=== PATIENT | male | born 2005 | race Caucasian/White ===

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

== ENCOUNTER 2024-03-19 17:45 | Emergency (ER) | payer BC, SELFPAY ==
[2024-03-19 18:24] VITALS: BP 107/62; PULSE 66; RESP 18; TEMP 37.4; O2SAT 99; BMI 20.5
[2024-03-19 18:28] LABS: UTC Strep Screen (Rapid) Positive (Negative)
--- NOTE | 2024-03-19 18:35 | ED_ITS ---
Discharge Plan Disposition Patient Disposition: Home, Self-Care Condition: Good Prescriptions Prescriptions: New azithromycin 250 mg tablet 250 mg PO DIRECTED Qty: 6 0RF Rx Instructions: Take two (2) tablets on day #1, then one (1) tablet day #2 thru #5 Referrals Follow up/Referrals: Provider,Referral, MD [Primary Care Provider] - See instructions Activity Restrictions/Add. Instructions Additional Instructions/Restrictions: Start antibiotics today be sure to take it as ordered with the full length of time although you should start feeling better in 24-48 hours. Change toothbrush and toothpaste 24-48 hours after starting antibiotics Tylenol or Motrin as needed for fever or pain Encourage fluids, water, Gatorade, Powerade, try cold fluids, popsicles, ice cream will make it feel better You are contagious for 24 hours. Avoid kissing anyone, no eating or drinking after anyone. You are contagious. Follow-up the ER for new or worsening symptoms or no noticeable improvement over the next 24-48 hours. Follow-up with PCP this week. Clinical Impressions Clinical Impression: Strep throat Instructions Patient Instructions: DI for Strep Throat Print Language Print Language: Chinese Discharge ED Provider: Michelle ([facility] [place])Carmina [facility] [place] H[place] General Stated complaint: sore throat white spots Mode of Arrival: Ambulatory Source of Information: Patient Time Seen by Provider: 03/19/24 18:22 Description of Symptoms (Recalled from Triage Doc. by RN): SORE THROAT HEENT Symptoms (Recalled from RN notes): Yes Resp Symptoms (Recalled from RN notes): No Skin Symptoms (Recalled from RN notes): No MS Symptoms (Recalled from RN notes): No Functional Status (Recalled from RN notes): WNL History of Present Illness Provider Complaint: 18-year-old male presents for sore throat with white patches Related Data Previous Rx's ?Medication ?Instructions ?Recorded azithromycin 250 mg tablet 250 mg PO DIRECTED #6 tabs 03/19/24 Allergies Allergy/AdvReac Type Severity Reaction Status Date / Time No Known Allergies Allergy Verified 07/19/23 19:32 Worker's Comp Is this a Worker's Comp case?: No [facility] Disclaimer: The information contained in this section may have been updated after the patient was seen, as this information can be updated by other users. 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 alcohol intake: never current occupational status: employed Travel in the last 8 weeks: None Have you lived/traveled outside [place] in past 30 days?: No Contact w/someone who lives/traveled outside US past 30 days?: No Exposure to someone with infectious disease in past 14 days?: No Do you have a fever (greater than 100.4 F or 38 C)?: No Have you tested positive for COVID-19: No Exposed to someone with COVID-19 in past 14 days?: No Do you have a sore throat?: Yes Do you have a cough?: No Do you have any weakness?: No Do you have any diarrhea?: No Are you experiencing any unusual bleeding?: No Do you have any muscle aches/pain?: No Do you have any abdominal pain?: No Are you experiencing loss of taste or smell?: No ROS Obtained: Yes Systems reviewed as appropriate & no additional complaints except as documented ENT Ears, Nose, Mouth, and Throat: Reports system reviewed and no additional complaints, except as documented, Reports as per HPI and Reports sore throat Physical Exam General General appearance: alert and in no apparent distress ENT ENT exam: Present mucous membranes moist and TM's normal bilaterally Expanded ENT Exam Throat exam: Present tonsillar erythema, tonsillomegaly and tonsillar exudate Respiratory Respiratory exam: Present normal lung sounds bilaterally Cardiovascular Cardiovascular exam: Present regular rate and normal rhythm Neurological Exam Neurological exam: Present alert and oriented X3 Skin Skin exam: Present warm and intact Medical Decision Making Medical Records Medical records reviewed: Yes I reviewed the patient's medical records. Screening: Per USPSTF and CDC recommendations, given the prevalence of disease in our region, it is our hospital?s policy to screen for HIV and viral Hepatitis for all patients aged 18 and over and those with ongoing risk factors. Artur Inquiry Pt receiving controlled substance: No Vital Signs: 03/19/24 18:24 Temperature 99.3 F Temperature Source Oral Pulse Rate [Left Radial] 66 Respiratory Rate 18 Blood Pressure [Left Arm] 107/62 L Blood Pressure Mean [Left Arm] 77 02 Sat by Pulse Oximetry 99 Lab Data Lab results reviewed: Yes I reviewed the patient's lab results. Lab Results 03/19/24 18:19: Strep Scn [facility] Positive A
[2024-03-19 18:48] VITALS: BP 107/62; PULSE 66; RESP 18; TEMP 37.4
== END 2024-03-19 18:49 | disposition home or self-care (01) ==
PROVIDERS: Emergency Provider Nurse Practitioner Family
DX: J02.0 Streptococcal pharyngitis (principal)
CPT/HCPCS: 87880; 99213; G0381

== ENCOUNTER 2024-03-29 15:40 | Emergency (ER) | payer BC, SELFPAY ==
[2024-03-29 16:33] VITALS: BP 116/73; PULSE 64; RESP 18; TEMP 36.8; O2SAT 98; BMI 20.2
--- NOTE | 2024-03-29 16:47 | EXP.UTC ---
Discharge Plan Disposition Patient Disposition: Home, Self-Care Condition: Good Prescriptions Prescriptions: New cephalexin 500 mg capsule 500 mg PO QID 10 Days Qty: 40 0RF mupirocin 2 % ointment 1 applic topical TID 7 Days Qty: 15 0RF Referrals Follow up/Referrals: Provider,Referral, MD [Primary Care Provider] - See instructions Activity Restrictions/Add. Instructions Additional Instructions/Restrictions: Keep the affected area clean and dry. Follow up with your regular doctor. Take the antibiotics as directed and apply the topical antibiotics as directed. Apply warm wet compresses to the affected area three or four times per day. Soaking in a tub of warm water would be good if that is easier. GO TO THE ER FOR ANY WORSENING SYMPTOMS Clinical Impressions Clinical Impression: Folliculitis Instructions Patient Instructions: Cephalexin, Mupirocin, Folliculitis, DI for Folliculitis Print Language Print Language: Greek Discharge ED Provider: Miko Gill [facility] General Stated complaint: bumps groin area Mode of Arrival: Ambulatory Source of Information: Patient Time Seen by Provider: 03/29/24 16:42 Description of Symptoms (Recalled from Triage Doc. by RN): BUMPS IN GENITAL AREA HEENT Symptoms (Recalled from RN notes): No Resp Symptoms (Recalled from RN notes): No Skin Symptoms (Recalled from RN notes): Yes MS Symptoms (Recalled from RN notes): No Functional Status (Recalled from RN notes): WNL History of Present Illness Provider Complaint: He states that for the past 3 days he has has multiple red bumps on the base of his penis. He denies any pain or itching, but states that wounds or slightly sore to touch. He denies any history of having previous lesions. He denies a history of unsafe sex. Related Data Previous Rx's ?Medication ?Instructions ?Recorded cephalexin 500 mg capsule 500 mg PO QID 10 days #40 caps 03/29/24 mupirocin 2 % topical ointment 1 applic topical TID 7 days #15 03/29/24 grams Allergies Allergy/AdvReac Type Severity Reaction Status Date / Time No Known Allergies Allergy Verified 07/19/23 19:32 Worker's Comp Is this a Worker's Comp case?: No [facility] Disclaimer: The information contained in this section may have been updated after the patient was seen, as this information can be updated by other users. Social History (Reviewed 03/19/24 @ 18:35 by Carmina Martinez ([facility]), TECHNOLOGY INFUSION SPECIALIST) Smoking Status: Never smoker alcohol intake: never current occupational status: employed Travel in the last 8 weeks: None Have you lived/traveled outside US in past 30 days?: No Contact w/someone who lives/traveled outside US past 30 days?: No Exposure to someone with infectious disease in past 14 days?: No Do you have a fever (greater than 100.4 F or 38 C)?: No Have you tested positive for COVID-19: No Exposed to someone with COVID-19 in past 14 days?: No Do you have a sore throat?: No Do you have a cough?: No Do you have any weakness?: No Do you have any diarrhea?: No Are you experiencing any unusual bleeding?: No Do you have any muscle aches/pain?: No Do you have any abdominal pain?: No Are you experiencing loss of taste or smell?: No ROS Obtained: Yes All systems reviewed & no additional complaints except as documented Constitutional Constitutional: Denies chills and Denies fever(s) Eyes Eyes: Denies eye discharge ENT Ears, Nose, Mouth, and Throat: Denies dizziness, Denies otalgia and Denies sore throat Cardiovascular Cardiovascular: Denies chest pain Respiratory Respiratory: Denies shortness of breath, Denies chest congestion, Denies cough, Denies stridor and Denies wheezing Gastrointestinal Gastrointestingal: Denies nausea or vomiting Genitourinary Male Genitourinary: Reports as per HPI and Denies difficulty urinating Musculoskeletal Musculoskeletal: Reports system reviewed and no additional complaints, except as documented and Denies arthralgias Integumentary/Breasts Skin/Breast: Reports as per HPI Neurologic Neurologic: Denies dizziness and Denies paresthesias Allergic/Immunologic Allergic/Immunologic: Denies wheezing Physical Exam General General appearance: alert and in no apparent distress Head Head exam: atraumatic, normocephalic and normal inspection Eye Eye exam: Present normal appearance, PERRL and EOMI ENT ENT exam: Present normal exam, normal oropharynx, mucous membranes moist, TM's normal bilaterally and normal external ear exam Neck Neck exam: Present normal inspection, full ROM and trachea midline; Absent meningismus or lymphadenopathy Chest Chest inspection: Present normal inspection and symmetric chest wall rise; Absent tenderness Respiratory Respiratory exam: Present normal lung sounds bilaterally; Absent respiratory distress Cardiovascular Cardiovascular exam: Present regular rate and normal rhythm; Absent JVD Abdominal Exam Abdominal exam: Present soft and normal bowel sounds; Absent distention, tenderness or guarding Extremities Exam Extremities exam: Present normal inspection, full ROM and normal capillary refill; Absent calf tenderness Back Exam Back exam: Present normal inspection; Absent tenderness Neurological Exam Neurological exam: Present alert and oriented X3 Psychiatric Psychiatric exam: Present normal affect and normal mood Skin Skin exam: Present other (on the underside of his penis near it's base there are 2 small pustules. no surrounding erythema, no vesicles noted. no induration. ) Lymphatic Lymphatic Findings: no adenopathy Medical Decision Making Medical Records Medical records reviewed: No I reviewed the patient's medical records. Screening: Per USPSTF and CDC recommendations, given the prevalence of disease in our region, it is our hospital?s policy to screen for HIV and viral Hepatitis for all patients aged 18 and over and those with ongoing risk factors. Artur Inquiry Pt receiving controlled substance: No Vital Signs: 03/29/24 16:33 Temperature 98.3 F Temperature Source Oral Pulse Rate [Left Radial] 64 Respiratory Rate 18 Blood Pressure [Left Arm] 116/73 Blood Pressure Mean [Left Arm] 87 02 Sat by Pulse Oximetry 98 Medical Decision Narrative: a viral culture was obtained from the drainage from the wounds.
[2024-03-29 18:02] VITALS: BP 116/73; PULSE 64; RESP 18; TEMP 36.8
== END 2024-03-29 18:07 | disposition home or self-care (01) ==
PROVIDERS: Emergency Provider Nurse Practitioner Family
DX: L73.9 Follicular disorder, unspecified (principal)
CPT/HCPCS: 87070; 87077; 87186; 87205; 87529; 99213; G0381

== ENCOUNTER 2024-05-06 17:31 | Emergency (ER) | payer BC, SELFPAY ==
[2024-05-06 17:40] VITALS: BP 110/54; PULSE 84; RESP 18; TEMP 36.8; O2SAT 98; BMI 20.3
[2024-05-06 17:53] LABS: Coronavirus 19, PCR Not Detected (NotDetected); Influenza A, PCR Not Detected (NotDetected); Influenza B, PCR Not Detected (NotDetected)
[2024-05-06 18:01] LABS: Strep Scrn Group A (Rapid) Negative (Negative)
--- NOTE | 2024-05-06 18:40 | HMH.EDGENADL ---
Discharge Plan Disposition Patient Disposition: Home, Self-Care Condition: Good Prescriptions Prescriptions: New Chloraseptic Throat [place] 1.4 % aerosol,spray 4 spray mucous membrane Q5H PRN (Reason: sore throat) Qty: 20 0RF Referrals Follow up/Referrals: Provider,Referral, MD [Primary Care Provider] - See instructions Activity Restrictions/Add. Instructions Additional Instructions/Restrictions: Today your evaluated in the emergency department. Your COVID, influenza and strep are negative. Please continue to take acetaminophen and ibuprofen [id number] for symptomatic relief. Use the Chloraseptic spray as directed. Please follow-up with your PCP within 7 days. Please return to the ED for worsening of condition. Clinical Impressions Clinical Impression: Pharyngitis Qualifiers: Pharyngitis/tonsillitis etiology: unspecified etiology Qualified Code(s): J02.9 - Acute pharyngitis, unspecified Instructions Patient Instructions: Viral Pharyngitis Print Language Print Language: Syriac Discharge ED Provider: Bradley Ryan General Adult HPI <Fadumo Edwards APRN - Last Filed: 05/06/24 20:47> General Chief complaint: Headache Stated complaint: sore throat, ROSA Time Seen by Provider: 05/06/24 17:49 Mode of Arrival: Ambulatory Source of Information: Patient Description of Symptoms (Recalled from ER Triage Doc. by RN): Pt presents for evaluation of sore throat and headache x 2 weeks. denies any other additonal symptoms. History of Present Illness HPI narrative: patient is a 19-year-old male no significant PMHx who presents to the ED with 2 weeks of sore throat. Patient states his sore throat is more of a scratchy feeling. He denies any additional symptoms with this. He has not been around anyone sick that he is aware of. Related Data Previous Rx's ?Medication ?Instructions ?Recorded phenol 1.4 % mucosal aerosol spray 4 spray mucous membrane Q5H PRN 05/06/24 (Chloraseptic Throat [place]) sore throat #20 mL Allergies Allergy/AdvReac Type Severity Reaction Status Date / Time No Known Allergies Allergy Verified 05/06/24 17:44 PFSH <Fadumo Edwards APRN - Last Filed: 05/06/24 20:47> PFS Disclaimer: The information contained in this section may have been updated after the patient was seen, as this information can be updated by other users. Social History Smoking Status: Never smoker alcohol intake: never current occupational status: employed Travel in the last 8 weeks: None Have you lived/traveled outside [place] in past 30 days?: No Contact w/someone who lives/traveled outside US past 30 days?: No Exposure to someone with infectious disease in past 14 days?: No Do you have a fever (greater than 100.4 F or 38 C)?: No Have you tested positive for COVID-19: No Exposed to someone with COVID-19 in past 14 days?: No Do you have a sore throat?: Yes Do you have a cough?: No Do you have any weakness?: No Do you have any diarrhea?: No Are you experiencing any unusual bleeding?: No Do you have any muscle aches/pain?: No Do you have any abdominal pain?: No Are you experiencing loss of taste or smell?: No <Fadumo Edwards APRN - Last Filed: 05/06/24 20:47> ROS Obtained: Yes Systems reviewed as appropriate & no additional complaints except as documented Physical Exam <Fadumo Edwards APRN - Last Filed: 05/06/24 20:47> General General appearance: alert and in no apparent distress Head Head exam: atraumatic and normocephalic Eye Eye exam: Present normal appearance and PERRL ENT ENT exam: Present normal exam Neck Neck exam: Present normal inspection Chest Chest inspection: Present normal inspection and symmetric chest wall rise; Absent tenderness Respiratory Respiratory exam: Present normal lung sounds bilaterally Cardiovascular Cardiovascular exam: Present regular rate Abdominal Exam Abdominal exam: Present soft and normal bowel sounds; Absent tenderness Extremities Exam Extremities exam: Present normal inspection and full ROM Back Exam Back exam: Present normal inspection and full ROM Neurological Exam Neurological exam: Present alert and oriented X3 Psychiatric Psychiatric exam: Present normal affect and normal mood Skin Skin exam: Present warm and dry Medical Decision Making <Fadumo Edwards APRN - Last Filed: 05/06/24 20:47> Medical Records Screening: Per USPSTF and CDC recommendations, given the prevalence of disease in our region, it is our hospital?s policy to screen for HIV and viral Hepatitis for all patients aged 18 and over and those with ongoing risk factors. Artur Inquiry Pt receiving controlled substance: No Artur was queried for this patient: No Vital Signs: 05/06/24 17:40 05/06/24 20:21 Temperature 98.2 F 98.5 F Temperature Source Temporal Artery Scan Temporal Artery Scan Pulse Rate 74 Pulse Rate [Right] 84 Respiratory Rate 18 16 Blood Pressure 112/67 Blood Pressure [Right Arm] 110/54 L Blood Pressure Mean [Right Arm] 72 Blood Pressure Source Automatic Cuff Blood Pressure Source [Right Arm] Automatic Cuff Blood Pressure Position Sitting Blood Pressure Position [Right Arm] Sitting 02 Sat by Pulse Oximetry 98 Oxygen Delivery Method Room Air Room Air Lab Data Lab Results 05/06/24 17:45: SARS-CoV-2 (PCR) Not detected, Influenza A Untype (PCR) Not detected, Influenza Type B (PCR) Not detected, Group A Strep Rapid Negative 05/06/24 18:45: Monoscreen Negative Orders (Tests/Meds): ORDERS Category Date Time Status Monoscreen (Rapid) Stat Lab 05/06/24 18:45 Completed Rapid PCR Covid and Flu A/B Stat Lab 05/06/24 17:45 Completed Strep Scrn Group A (Rapid) Stat Lab 05/06/24 17:45 Completed Strep Screen Confirmation Stat Micro 05/06/24 17:45 Received Medical Decision Narrative: In summary, patient is a 19-year-old male no significant PMHx who presents to the ED with 2 weeks of sore throat. Patient states his sore throat is more of a scratchy feeling. He denies any additional symptoms with this. He has not been around anyone sick that he is aware of. He does not have difficulty swallowing, airway is patent. Denies fever, chills, body aches, posterior neck pain, headache, visual disturbances, chest pain, shortness of breath, abdominal pain, nausea, vomiting. Upon initial physical exam patient is alert, oriented and cooperative. He is hemodynamically stable. Physical exam is unremarkable. Differential diagnosis include strep pharyngitis, COVID, influenza, mono, viral pharyngitis. COVID, influenza, strep swab negative. [place] has not resulted yet however I discussed with patient that he can check this on his portal wilder. I advised him that he can gargle warm salt water for symptomatic relief. I sent a prescription for Chloraseptic throat spray to the pharmacy. Discussed that he will need to obtain a PCP and follow-up with them. We discussed return precautions to the ED and patient verbalized understanding. <Bradley Ryan MD - Last Filed: 05/06/24 21:21> Vital Signs: 05/06/24 17:40 05/06/24 20:21 Temperature 98.2 F 98.5 F Temperature Source Temporal Artery Scan Temporal Artery Scan Pulse Rate 74 Pulse Rate [Right] 84 Respiratory Rate 18 16 Blood Pressure 112/67 Blood Pressure [Right Arm] 110/54 L Blood Pressure Mean [Right Arm] 72 Blood Pressure Source Automatic Cuff Blood Pressure Source [Right Arm] Automatic Cuff Blood Pressure Position Sitting Blood Pressure Position [Right Arm] Sitting 02 Sat by Pulse Oximetry 98 Oxygen Delivery Method Room Air Room Air Lab Data Lab Results 05/06/24 17:45: SARS-CoV-2 (PCR) Not detected, Influenza A Untype (PCR) Not detected, Influenza Type B (PCR) Not detected, Group A Strep Rapid Negative 05/06/24 18:45: Monoscreen Negative Orders (Tests/Meds): ORDERS Category Date Time Status Monoscreen (Rapid) Stat Lab 05/06/24 18:45 Completed Rapid PCR Covid and Flu A/B Stat Lab 05/06/24 17:45 Completed Strep Scrn Group A (Rapid) Stat Lab 05/06/24 17:45 Completed Strep Screen Confirmation Stat Micro 05/06/24 17:45 Received Medical Decision Narrative: In summary, patient is a 19-year-old male no significant PMHx who presents to the ED with 2 weeks of sore throat. Patient states his sore throat is more of a scratchy feeling. He denies any additional symptoms with this. He has not been around anyone sick that he is aware of. He does not have difficulty swallowing, airway is patent. Denies fever, chills, body aches, posterior neck pain, headache, visual disturbances, chest pain, shortness of breath, abdominal pain, nausea, vomiting. Upon initial physical exam patient is alert, oriented and cooperative. He is hemodynamically stable. Physical exam is unremarkable. Differential diagnosis include strep pharyngitis, COVID, influenza, mono, viral pharyngitis. COVID, influenza, strep swab negative. [place] has not resulted yet however I discussed with patient that he can check this on his portal wilder. I advised him that he can gargle warm salt water for symptomatic relief. I sent a prescription for Chloraseptic throat spray to the pharmacy. Discussed that he will need to obtain a PCP and follow-up with them. We discussed return precautions to the ED and patient verbalized understanding. I was consulted by the WILDER, and we discussed the complexity of the problems being addressed. I approved the treatment and management plan for this patient's care in the Emergency Department, thus performing a substantive portion of the medical decision making. Bradley Ryan MD Critical Care <Fadumo Edwards, CLOTH INSPECTOR - Last Filed: 05/06/24 20:47> Critical Care Time Critical Care Time: No
[2024-05-06 20:18] LABS: Monoscreen (Rapid) Negative (Negative)
[2024-05-06 20:21] VITALS: BP 112/67; PULSE 74; RESP 16; TEMP 36.9; O2SAT 98
== END 2024-05-06 20:21 | disposition home or self-care (01) ==
PROVIDERS: Nurse Practitioner; Emergency Provider Emergency Medicine
DX: J02.9 Acute pharyngitis, unspecified (principal); R51.9 Headache, unspecified
CPT/HCPCS: 86318; 87430; 87636; 99283

== ENCOUNTER 2024-09-20 21:38 | Emergency (ER) | payer BC, SELFPAY ==
[2024-09-20 22:13] VITALS: BP 106/64; PULSE 76; RESP 20; TEMP 37.2; O2SAT 96; BMI 252.3
[2024-09-20 22:40] VITALS: BP 106/60; PULSE 73; O2SAT 96
[2024-09-20 23:00] VITALS: BP 106/63; PULSE 72; O2SAT 97
--- NOTE | 2024-09-20 23:10 | HMH.EDGENADL ---
Discharge Plan Disposition Patient Disposition: Home, Self-Care Prescriptions Prescriptions: No Action omeprazole 20 mg capsule,delayed release(DR/EC) 20 mg PO DAILY Qty: 30 2RF Activity Restrictions/Add. Instructions Additional Instructions/Restrictions: Please follow-up with your primary care provider. Please return to the emergency department if you develop any new or worsening symptoms or become concerned for your health. Clinical Impressions Clinical Impression: Influenza, Fatigue Pharyngitis Qualifiers: Pharyngitis/tonsillitis etiology: unspecified etiology Qualified Code(s): J02.9 - Acute pharyngitis, unspecified Stand Alone Forms Stand Alone Forms: Work/School Release Print Language Print Language: Yi Discharge ED Provider: Jarvis Galeano General Adult HPI General Chief complaint: PAIN Stated complaint: Flu,ROSA,sore throat,sores on mouth,cough,congestion Time Seen by Provider: 09/20/24 23:00 Mode of Arrival: Ambulatory Source of Information: Patient Description of Symptoms (Recalled from ER Triage Doc. by RN): headache and sore thorat for a week History of Present Illness HPI narrative: 19-year-old male with no significant past medical history presents for flulike symptoms. Reports he felt bad for a week. Had a fever several days ago up to 102 at home. He has been having headache, generalized fatigue, muscle aches. He has had cough and congestion and some ear pain. He was seen at urgent care and was tested for flu, strep, mono. He tested positive for the flu, negative for strep and mono. Despite this, he was started on amoxicillin for unclear reasons. He has developed some intraoral vesicular lesions. Denies any lesions on the hands and feet. Reports that he feels slightly better today than he did yesterday. Last fever was several days ago. Related Data Previous Rx's ?Medication ?Instructions ?Recorded omeprazole 20 mg capsule,delayed 20 mg PO DAILY #30 caps 06/29/24 release Allergies Allergy/AdvReac Type Severity Reaction Status Date / Time No Known Allergies Allergy Verified 06/29/24 17:09 [facility] Disclaimer: The information contained in this section may have been updated after the patient was seen, as this information can be updated by other users. Medical History (Updated 09/20/24 @ 23:11 by Jarvis Galeano MD) Sore throat Social History Smoking Status: Current every day smoker alcohol intake: never current occupational status: employed Travel in the last 8 weeks?: None ROS Obtained: Yes All systems reviewed & no additional complaints except as documented Physical Exam General General appearance: alert Comment: Uncomfortable appearing Head Head exam: atraumatic and normocephalic Eye Eye exam: Present normal appearance, PERRL and EOMI ENT ENT exam: Present mucous membranes moist, TM's normal bilaterally and normal external ear exam; Absent normal oropharynx (Tonsillar exudate and erythema. Scattered punctate vesicular lesions on the cheeks, gums. Does not appear herpetic.) Neck Neck exam: Present normal inspection and full ROM Chest Chest inspection: Present normal inspection and symmetric chest wall rise; Absent tenderness Respiratory Respiratory exam: Present normal lung sounds bilaterally; Absent respiratory distress Cardiovascular Cardiovascular exam: Present regular rate and normal rhythm Abdominal Exam Abdominal exam: Present soft; Absent distention, tenderness or guarding Extremities Exam Extremities exam: Present normal inspection; Absent edema or joint swelling Back Exam Back exam: Present normal inspection; Absent tenderness Neurological Exam Neurological exam: Present alert and oriented X3; Absent motor sensory deficit Psychiatric Psychiatric exam: Present normal affect and normal mood Skin Skin exam: Present warm, dry and normal color Lymphatic Lymphatic Findings: no adenopathy Medical Decision Making Medical Records Medical records reviewed: Yes I reviewed the patient's medical records. Screening: Per USPSTF and CDC recommendations, given the prevalence of disease in our region, it is our hospital?s policy to screen for HIV and viral Hepatitis for all patients aged 18 and over and those with ongoing risk factors. Artur Inquiry Pt receiving controlled substance: No Artur was queried for this patient: No Vital Signs: 09/20/24 22:13 09/20/24 22:40 09/20/24 23:00 Temperature 98.9 F Temperature Source Oral Pulse Rate 73 72 Pulse Rate [Left Radial] 76 Respiratory Rate 20 Blood Pressure 106/60 L 106/63 L Blood Pressure [Right Arm] 106/64 L Blood Pressure Mean [Right Arm] 78 Blood Pressure Source [Right Arm] Automatic Cuff Blood Pressure Position [Right Arm] Sitting 02 Sat by Pulse Oximetry 96 96 97 Oxygen Delivery Method Room Air Lab Data Lab results reviewed: Yes I reviewed the patient's lab results. Medical Decision Narrative: -year-old male without significant past medical history presents for 1 week of flulike illness, tested positive for the flu, has developed vesicular lesions in the mouth.. History was obtained via interactive discussion with patient, family, chart review. On arrival, patient is [afebrile, hemodynamically stable, satting appropriately, alert, oriented x4, GCS 15], moving all extremities spontaneously. Full physical exam performed and significant for clear TMs, clear lungs bilaterally, exudative pharyngitis noted with scattered vesicular lesions on the oral mucosa. Differential includes but is not limited to influenza, mono, [id number]-[id number]-mouth, strep. Patient tested negative for strep and mono when he tested positive for the flu. He had been having symptoms for multiple days at the time he was tested so this seems less likely to be false negative. Unclear why he was initiated on antibiotics when he has a clearly viral picture. He has no lesions on the hands or feet to suggest pekt-cdqm-txa-mouth, though the lesions in the mouth to look like coxsackie. I offered them a viral panel and blood work, though I think the utility is low at this point. I recommended they discontinue the antibiotics and continue symptomatic care at home. Recommended he stay off work for a few days. Return precautions given. Procedures Risk/Benefits of Procedure(s) Were Explained: Yes Critical Care Critical Care Time Critical Care Time: No
[2024-09-20 23:19] VITALS: BP 106/63; PULSE 72; RESP 18; TEMP 37.2; O2SAT 94
--- OUTSIDE RECORDS SUMMARY | 2024-09-20 23:20 | XMS_ITS | Clinical Summary ---
Author Organization [facility] Address [address] [place] [id number] Phone [email or web address] Care Team Providers Care Roundhouse Worker Name Role Phone Provider, No Primary Care Provider Unavailabl e Allergies No known active allergies Medications ibuprofen (MOTRIN) 200 MG tablet Take 200 mg by mouth every 6 (six) hours if needed for mild pain. Active Active Problems No known active problems Social History Tobacco Use Types Packs/Day Years Used Date Smoking Tobacco: Every Day E-Cigarettes Smokeless Tobacco: Never Tobacco Cessation:Ready to Q uit: No; Counseling Given: Yes Depression Answer Date Recorded PHQ Total Score 0 02/08/2024 Stress Answer Date Recorded Stress in your Life Not on file 12/28/2023 Dealing with Stress 3 12/28/2023 Sex and Gender Information Value Date Recorded Sex Assigned at Not on file Legal Sex Male 3:08 PM CDT Gender Identity Not on file Sexual Orientation Not on file Last Filed Vital Signs Vital Sign Reading Time Taken Comments Blood Pressure 118/74 04/15/2024 7:12 AM EST Pulse 68 04/15/2024 7:12 AM EST Temperature 36.8 C (98.2 F) 03/31/2024 7:47 AM EST Respiratory Rate 18 04/15/2024 7:12 AM EST Oxygen Saturation 97% 04/15/2024 7:12 AM EST Inhaled Oxygen Concentration - - Weight 58.3 kg (128 lb 9.6 oz) 02/08/2024 9:39 A M EST Height 175.3 cm (5' 9 ) 02/08/2024 9:39 AM EST Body Mass Index 18.99 02/08/2024 9:39 AM EST Plan of Treatment Health Maintenance Due Date Last Done Comments Dental Cleaning/Exam 2004 HIV Screening 2004 Hepatitis C Screening 2004 HPV Immunization (1 - Male 3 -dose series) 2019 Men B Immunization (1 of 2 - Standard) 2020 Hep B Infection Screening - Triple Screen 2022 Hepatitis B Immunization (1 of 3 - 19+ 3-dose series) 2023 Pneumococcal: Ped (0 to 5 Yr s) and At-Risk Member (6 to 64 Yrs) (1 of 2 - PCV) 2023 Tetanus Diphtheria and Pertu ssis Immunization (1 - Tdap) 2023 Covid-19 Immunization (1 - 2 024-25 season) 2023 Annual Preventive Exam 11/08/2023 11/07/2022 Influenza Immunization (#1) 2024 HIB Immunization Aged Out No longer e ligible based on patient's age to complete this topic Hepatitis A Immunization Aged Out No longer eligible based on patient's age to complete this topic Meningococcal Immunization Aged Out N o longer eligible based on patient's age to complete this topic Polio Immunization Aged Out No longer eligible based on patient's age to complete this topic Varicella Immunization Aged Out No lo nger eligible based on patient's age to complete this topic Insurance OPT OUT NO COPAY NB OPT OUT NO COPAY NB Care Teams Roundhouse Worker Relationship Specialty Start Date End Date Provider, ASHLEY Harding [id number] PCP - General Asp Developer 11/07/22
== END 2024-09-20 23:21 | disposition home or self-care (01) ==
LOC: ER 23:18
PROVIDERS: Emergency Provider Emergency Medicine
DX: J02.9 Acute pharyngitis, unspecified (principal); R53.83 Other fatigue
CPT/HCPCS: 99283